=== PATIENT | female | born 2000 | race Two or more races ===

== ENCOUNTER 2019-10-16 23:10 | Emergency (ER) | payer SELFPAY ==
[~2019-10-16] VITALS: Ht 165.1 cm; Wt 72.6 kg
[2019-10-16 23:19] VITALS: BP 143/111
== END 2019-10-16 23:33 | disposition left against medical advice (07) ==
LOC: ER 23:16
DX: S01.91XA Laceration without foreign body of unspecified part of head, initial encounter (principal); Z53.21 Procedure and treatment not carried out due to patient leaving prior to being seen by health care provider; W22.8XXA Striking against or struck by other objects, initial encounter; Y93.89 Activity, other specified; Y99.8 Other external cause status; Y92.89 Other specified places as the place of occurrence of the external cause

== ENCOUNTER 2020-05-28 22:27 | Emergency (ER) | payer SELFPAY ==
[~2020-05-28] VITALS: Ht 162.6 cm; Wt 72.6 kg
[2020-05-29] LABS: Urine Bacteria FEW /hpf (None Seen); Urine Blood 3+ /uL (Negative); Urine Mucus FEW (None Seen); Urine Specific Gravity 1.029 (1.001-1.035); Urine WBC 4 /hpf (0 - 5)
[2020-05-29 02:58] VITALS: BP 141/101
== END 2020-05-29 03:27 | disposition home or self-care (01) ==
LOC: ER 22:27
DX: M54.6 Pain in thoracic spine (principal)
CPT/HCPCS: 81001

== ENCOUNTER 2020-05-30 14:28 | Emergency (ER) | payer SELFPAY ==
[~2020-05-30] VITALS: Ht 165.1 cm; Wt 72.6 kg
[2020-05-30 14:40] VITALS: BP 122/92
[2020-05-30 15:47] LABS: Basophils # (auto) 0 10 ^3/uL (0-0.2); Basophils % (auto) 0.3 % (0.0-2.0); Eosinophils # (auto) 0 10 ^3/uL (0-0.8); Eosinophils % (auto) 0.4 % (0.0-7.0); Hematocrit 41.4 % (36.0-46.0); Hemoglobin 13.8 g/dL (12.2-16.2); Lymphocytes # (auto) 1.7 10 ^3/uL (0.4-5.4); Lymphocytes % (auto) 16.8 % (10.0-50.0); Mean Corpuscular Hemoglobin 28.4 pg (28.0-32.0); Mean Corpuscular Hgb Conc. 33.2 g/dL (32.0-36.0); Mean Corpuscular Volume 85.3 fL (80.0-100.0); Monocytes # (auto) 0.5 10 ^3/uL (0-1.3); Monocytes % (auto) 4.7 % (0.0-12.0); Neutrophils # (auto) 7.9 10 ^3/uL (1.6-8.6); Neutrophils % (auto) 77.8 % (37.0-80.0); Nucleated Red Blood Cells % 0.1 %; Platelet Count (auto) 278 10^3/uL (140-450); Red Blood Cells 4.85 10^6/uL (4.0-5.20); White Blood Cell 10.1 10^3/uL (4.4-10.8)
[2020-05-30 16:04] LABS: Chloride 107 mmol/L (98-107); Potassium 3.7 mmol/L (3.5-5.1); Sodium 137 mmol/L (136-145)
[2020-05-30 16:15] LABS: Alanine Aminotransferase 31 U/L (13-56); Albumin 4.1 g/dL (3.4-5.0); Alkaline Phosphatase 66 U/L (45-117); Anion Gap 5 (5-15); Aspartate Aminotransferase 17 U/L (15-37); BUN/Creatinine Ratio 15.3; Bilirubin, Total 0.8 mg/dL (0.2-1.0); Blood Urea Nitrogen 11 mg/dL (7-18); Calcium 9.1 mg/dL (8.5-10.1); Carbon Dioxide 25 mmol/L (21-32); GFR African American 130 mL/min; GFR Non-African American 108 mL/min; Glucose 91 mg/dL (74-106); Total Protein 8.3 g/dL (6.4-8.2)
== END 2020-05-30 17:10 | disposition home or self-care (01) ==
LOC: ER 14:28
DX: R07.89 Other chest pain (principal)
CPT/HCPCS: 36415; 80053; 84484; 85025; 93005